=== PATIENT | female | born 1945 | race Caucasian/White ===

== ENCOUNTER 2018-12-14 11:30 | Outpatient (CLI) | payer MEDICARE | END 2018-12-14 23:59 | disposition home or self-care (01) | LOC: RAD 11:30 | PROVIDERS: ATTEND Physician Assistant | DX: Z09 Encounter for follow-up examination after completed treatment for conditions other than malignant neoplasm (principal); M43.24 Fusion of spine, thoracic region | CPT/HCPCS: 72050; 72072 ==

== ENCOUNTER → 2019-08-18 | Outpatient (CLI) | payer MEDICARE | END | disposition home or self-care (01) | LOC: CFH 10:32 | PROVIDERS: ATTEND Physical Medicine & Rehabilitation | DX: M43.27 Fusion of spine, lumbosacral region (principal); M43.28 Fusion of spine, sacral and sacrococcygeal region | CPT/HCPCS: 72110 ==